=== PATIENT | female | born 1985 | race Caucasian/White ===

== ENCOUNTER 2018-12-14 05:32 | Day surgery (SDC) | payer MEDICAID ==
[2018-12-14 07:26] LABS: ADD MAN DIFF? NO
[2018-12-14 07:34] LABS: WHITE BLOOD COUNT 7.4 10^3/ul (4.8-10.8)
[2018-12-14 07:34] LABS: BASOPHILS % 0.3 % (0.0-2.0); EOSINOPHILS # 0.5 10^3/ul (0.0-0.5); EOSINOPHILS % 6.8 % (0.0-7.0); HEMATOCRIT 41.4 % (37.0-47.0); HEMOGLOBIN 13.9 g/dl (12.0-16.0); LYMPHOCYTES # 2.2 10^3/ul (0.8-2.9); LYMPHOCYTES % 29.4 % (15.0-51.0); MEAN CORPUSCULAR HEMOGLOBIN 28.8 pg (29.0-33.0); MEAN CORPUSCULAR HGB CONC 33.6 g/dl (32.0-37.0); MEAN CORPUSCULAR VOLUME 85.7 fl (82.0-101.0); MEAN PLATELET VOLUME 10.4 fl (7.4-10.4); MONOCYTE # 0.5 10^3/ul (0.3-0.9); MONOCYTES % 6.9 % (0.0-11.0); NEUTROPHIL # 4.2 10^3/ul (1.6-7.5); NEUTROPHILS % 56.5 % (39.0-77.0); PLATELET COUNT 217 10^3/UL (140-415); RED BLOOD COUNT 4.83 10^6/ul (4.20-5.40); RED CELL DISTRIBUTION WIDTH 11.9 % (11.5-14.5)
[2018-12-14] MEDS ORDERED: ROCURONIUM 50 MG INJ (07:35)
[2018-12-14] MEDS ORDERED: ROPIVACAINE 0.5 % 30 ML VIAL (07:35)
[2018-12-14] MEDS ORDERED: MIDAZOLAM 1 MG/ML 2 ML INJ (07:35)
[2018-12-14] MEDS ORDERED: FENTAnyl 50 MCG/ML VIAL (07:35)
[2018-12-14] MEDS ORDERED: PROPOFOL 20 ML (07:35)
[2018-12-14] MEDS ORDERED: ONDANSETRON 4 MG INJ (08:23)
[2018-12-14] MEDS ORDERED: DEXAMETHASONE 4 MG/ML 5 ML INJ (08:23)
[2018-12-14] MEDS ORDERED: METOCLOPRAMIDE 10 MG INJ (08:23)
[2018-12-14] MEDS ORDERED: KETOROLAC 30 MG INJ (08:23)
[2018-12-14] MEDS ORDERED: GLYCOPYRROLATE 0.4 MG INJ (08:31)
[2018-12-14] MEDS ORDERED: NEOSTIGMINE 3 MG/3 ML SYRINGE (08:31)
[2018-12-14] MEDS: FENTAnyl 50 MCG/ML VIAL IV ×2 (08:57→09:07)
[2018-12-14] MEDS: METOCLOPRAMIDE 10 MG INJ IV (08:57)
[2018-12-14] MEDS ORDERED: EPHEDrine 25 MG/5 ML SYG IV (09:00)
[2018-12-14] MEDS ORDERED: ONDANSETRON 4 MG INJ IV (09:00)
[2018-12-14] MEDS ORDERED: OXYCODONE/ACETAMINOPHEN (5/325) TAB PO (09:00)
[2018-12-14] MEDS ORDERED: FENTAnyl 50 MCG/ML VIAL IV (09:00)
[2018-12-14] MEDS ORDERED: MEPERIDINE 25 MG INJ IV (09:00)
[2018-12-14] MEDS ORDERED: HYDROmorphONE 1 MG/5 ML IV SYRINGE IV ×2 (09:00)
[2018-12-14] MEDS ORDERED: DIPHENHYDRAMINE 50 MG INJ IV (09:00)
== END 2018-12-14 11:15 | disposition home or self-care (01) ==
LOC: SDS 05:32
DX: Z30.2 Encounter for sterilization (principal)
CPT/HCPCS: 58670; 84702; 85025; 86850; 86900; 86901